=== PATIENT | female | born 1980 | race Caucasian/White ===

== ENCOUNTER 2018-12-26 12:42 | Outpatient (CLI) | payer OTHER ==
[~2018-12-26 12:42] MED LIST: KETO10TA2 PO; NABUMETONE750 MG PO; ORPH100T PO; PERCOCET 10-3251 TAB PO; PERCOCET 5/3251 TAB PO; PRENATAL1 TAB; TUSSI PRES-B L120 M1 PO; ZITHROMAX200 MG PO
== END 2018-12-26 13:04 ==
LOC: LAB 12:42
DX: D50.8 Other iron deficiency anemias (principal); E03.8 Other specified hypothyroidism; E78.3 Hyperchylomicronemia; B96.89 Other specified bacterial agents as the cause of diseases classified elsewhere

== ENCOUNTER 2018-12-28 07:35 | Outpatient (CLI) | payer OTHER | END 2018-12-28 07:46 | disposition home or self-care (01) | LOC: SONOGRAMA 07:35 | DX: R10.31 Right lower quadrant pain (principal); R10.32 Left lower quadrant pain ==

== ENCOUNTER 2020-05-21 10:34 | Emergency (ER) | payer OTHER ==
[~2020-05-21] VITALS: Ht 165.1 cm; Wt 81.6 kg
== END 2020-05-21 14:23 | disposition home or self-care (01) ==
LOC: ER 10:34
DX: K13.79 Other lesions of oral mucosa (principal); Z03.818 Encounter for observation for suspected exposure to other biological agents ruled out

== ENCOUNTER 2020-07-24 09:20 | Emergency (ER) | payer OTHER ==
[~2020-07-24] VITALS: Ht 165.1 cm; Wt 81.6 kg
== END 2020-07-24 14:58 | disposition home or self-care (01) ==
LOC: ER 09:20
DX: R10.12 Left upper quadrant pain (principal); Z03.818 Encounter for observation for suspected exposure to other biological agents ruled out

== ENCOUNTER → 2021-06-25 | Emergency (ER) | payer OTHER ==
[~2021-06-25] VITALS: Ht 165.1 cm; Wt 88.9 kg
[~2021-06-25] MED LIST changes: +APAP500 MG
== END | disposition home or self-care (01) ==
LOC: ER 09:56
DX: R10.32 Left lower quadrant pain (principal); K66.0 Peritoneal adhesions (postprocedural) (postinfection); Z03.818 Encounter for observation for suspected exposure to other biological agents ruled out

== ENCOUNTER 2021-11-16 18:51 | Emergency (ER) | payer OTHER ==
[~2021-11-16] VITALS: Ht 165.1 cm; Wt 94.8 kg
[2021-11-16] MEDS ORDERED: NAPROXEN375 MG PO (21:51)
== END 2021-11-16 21:58 | disposition home or self-care (01) ==
LOC: ER 18:51
DX: R59.0 Localized enlarged lymph nodes (principal); M54.2 Cervicalgia; Z11.52 Encounter for screening for COVID-19

== ENCOUNTER 2022-08-02 19:34 | Emergency (ER) | payer OTHER ==
[~2022-08-02] VITALS: Ht 165.1 cm; Wt 94.8 kg
[~2022-08-02 19:34] MED LIST changes: +ACETAMINOPHEN650 M2; +NAPROXEN375 MG PO
[2022-08-02] MEDS ORDERED: ZITHROMAX500 MG PO (23:03)
== END 2022-08-02 23:42 | disposition home or self-care (01) ==
LOC: ER 19:34
DX: B34.8 Other viral infections of unspecified site (principal); Z20.822 Contact with and (suspected) exposure to COVID-19

== ENCOUNTER 2023-11-13 11:41 | Emergency (ER) | payer OTHER ==
[~2023-11-13] VITALS: Ht 165.1 cm; Wt 79.4 kg
[~2023-11-13 11:41] MED LIST changes: +ZITHROMAX500 MG PO
[2023-11-13 12:52] LABS: HEMATOCRIT 37.5 % (36.0-45.00); HEMOGLOBIN 12.5 g/dL (12.0-15.00); MEAN CELL VOLUME 81.4 fL (80.00-100.00); MEAN CORPUSCULAR HEMOGLOBIN 27.1 pg (27.00-32.0); MEAN CORPUSCULAR HGB CONC 33.2 g/dl (32.0-36.0); PLATELET COUNT 176 K/uL (150-450); RED CELL DISTRIBUTION WIDTH 13.6 % (11.5-14.5)
[2023-11-13 13:03] LABS: PH,URINE 7.5 (5.0-8.0); URINE APPEARANCE Cloudy; URINE BILIRRUBIN Negative (NEGATIVE); URINE BLOOD Negative; URINE COLOR Yellow; URINE GLUCOSE Negative (NEGATIVE); URINE LEUKOCYTE Negative; URINE NITRATE Negative; URINE PROTEIN Negative (NEGATIVE); URINE UROBILINOGEN 0.2 E.U./dl
[2023-11-13 13:06] LABS: URINE BACTERIA 318.6 uL (0.0-1933); URINE EPITHELIAL CELLS 62.7 uL (0.0-38.8); URINE RBC 11.3 uL (0.0-20.8); URINE WBC 2.4 uL (0.0-23.2)
[2023-11-13 13:12] LABS: CREATININE SERUM 0.72 mg/dL (0.55-1.02); GFR 89.26; POTASSIUM 3.83 mEq/L (3.5-5.1)
== END 2023-11-13 14:30 | disposition home or self-care (01) ==
LOC: ER 11:42
PROVIDERS: General Practice
DX: R10.32 Left lower quadrant pain (principal); N83.209 Unspecified ovarian cyst, unspecified side
CPT/HCPCS: 36415; 74176; 96372; 99284; J1885

== ENCOUNTER 2025-05-08 09:52 | Emergency (ER) | payer OTHER ==
[~2025-05-08] VITALS: Ht 165.1 cm; Wt 86.2 kg
[2025-05-08 09:55] VITALS: BP 134/86; O2SAT 99
[2025-05-08] MEDS ORDERED: KETOROLAC TROMETHAMINE 30 MG VIAL IM STA (10:55)
[2025-05-08] MEDS ORDERED: ORPHENADRINE CITRATE 30 MG/ML AMPUL IM STA (10:56)
== END 2025-05-08 12:54 | disposition home or self-care (01) ==
LOC: ER 10:01
DX: R20.2 Paresthesia of skin (principal)